=== PATIENT | male | born 1990 | race Caucasian/White ===

== ENCOUNTER 2020-01-24 10:03 | Day surgery (SDC) | payer OTHER ==
[~2020-01-24 10:03] MED LIST: Augmentin 875-1 EACH PO; TRAM50 PO
== END 2020-01-24 23:07 | disposition home or self-care (01) ==
LOC: WOUND 10:03
DX: S51.852A Open bite of left forearm, initial encounter (principal); F17.210 Nicotine dependence, cigarettes, uncomplicated; W54.0XXA Bitten by dog, initial encounter
CPT/HCPCS: G0463